=== PATIENT | male | born 1970 | race African-American/Black ===

== ENCOUNTER → 2016-10-24 | Outpatient (CLI) | payer OTHER ==
[~2016-10-24] MED LIST: ISOVUE-370 76% 100ML VIAL (Q9967) As Ordered ONE
--- NOTE | 2016-10-25 08:45 | REP ---
Clinical: Retrocardiac density on previous x-ray. Technique: Axial contrast enhanced images from the thoracic inlet to the upper abdomen using 100 ml Isovue 370 intravenous contrast material with coronal and sagittal re-formations. Findings: The 2 cm ovoid density on x-ray corresponds to chronic calcified subcarinal lymph node with multiple smaller calcified lymph nodes identified in the right hilum consistent with prior granulomatous disease. The heart is upper limits of normal in size with minimal atherosclerotic changes of the coronary arteries noted and no evidence for pericardial effusion. The lung erickson are symmetric and relatively well aerated with minimal presumed posterior dependent changes. No focal consolidation, nodule or mass lesion is appreciated and there is no pleural effusion/reaction or pneumothorax. The tracheobronchial tree is patent. Surrounding musculoskeletal structures are intact. Limited evaluation of the upper abdomen demonstrates normal bilateral adrenal glands. Impression: 1. Retrocardiac density corresponds to calcified lymph node related to prior granulomatous disease and is chronic/benign. 2. No active/acute mediastinal or pleuroparenchymal process appreciated. 3. By CT evaluation, the heart is upper limits of normal with minimal atherosclerotic changes to the coronary arteries. Signed by Joce Mason MD 10/25/2016 08:36 A
== END ==
LOC: M RAD 17:19
PROVIDERS: ATTEND Physician Assistant
DX: R91.8 Other nonspecific abnormal finding of lung field (principal)